=== PATIENT | male | born 1980 | race Asian ===

== ENCOUNTER 2017-10-31 21:11 | Emergency (ER) | payer MEDICAID, OTHER ==
[~2017-10-31] VITALS: Ht 172.7 cm; Wt 124.3 kg
[2017-10-31 21:14] VITALS: Ht 172.7 cm; Wt 124.3 kg
--- NOTE | 2017-10-31 23:16 | ERD ---
ER Documentation Chief Complaint Chief Complaint C/O NECK/BACK/SHOULDER PAIN +COUGH X2 WEEKS HPI This 37 YO male pt reports sharp shooting left sided neck pain and stiffness, pt reports that he had a appointment with a Neurologist, but the referral before appointment and PMD office did not change the date . symptoms are chronic in legs reports 3-4 " flare up in arm in the las 5 yrs. ROS All systems reviewed and are negative except as per history of present illness. Medications Home Meds No Active Prescriptions or Reported Meds Allergies Allergies: Coded Allergies: No Known Allergy (Unverified , 04/17/14) PMhx/Soc Hx Miscellaneous Medical Probl: No (chronic pains) Hx Alcohol Use: Yes (socially only) Hx Substance Use: No Hx Tobacco Use: No Smoking Status: Never smoker Physical Exam Vitals Vital Signs Date Time Temp Pulse Resp B/P Pulse Ox O2 Delivery O2 Flow Rate FiO2 10/31/17 21:14 97.8 100 22 134/89 97 Vitals stable, triage notes reviewed Physical Exam Const: Obese, pleasant, well-nourished well-appearing 37-year-old male patient obvious discomfort no acute distress Head: Atraumatic Eyes: Normal Conjunctiva Neck: No cervical point tenderness, palpable paraspinal tenderness stiff posturing, limited range of motion with rotation and lateral bending, pain with flexion and extension. Back Exam: Skin: No bruising or rash Compartments: Soft Motor: Left parascapular palpable spasm, Sensation: Intact to light touch throughout Bones: No midline TTP Ext: No cyanosis, or edema Neur: Awake and alert Psych: Normal Mood and Affect Results 24 hrs Current Medications Medications (Trade) Dose Ordered Sig/Varghese Route PRN Reason Start Time Stop Time Status Last Admin Dose Admin Prednisone (Prednisone) 60 mg ONCE ONCE PO 11/01/17 00:00 11/01/17 00:01 DC 10/31/17 23:41 Ketorolac Tromethamine (Toradol) 15 mg ONCE STAT IM 10/31/17 23:31 10/31/17 23:33 DC 10/31/17 23:42 Acetaminophen (Tylenol Tab) 650 mg ONCE ONCE PO 11/01/17 00:00 11/01/17 00:01 DC 10/31/17 23:42 Procedures/MDM Nexus criteria assessment: MLTTP: None Intoxication: None Distracting Injury: None Focal Neurodeficit: None AMS: None Patient does not meet criteria for cervical imaging. This pleasant 37-year-old male patient presents to emergency department for evaluation of neck pain. Patient reports "nerve pain", patient describes this nerve pain as sharp stabbing pain that goes like a electric shock through him when he moves in certain positions. 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 Patient reports he has a appointment yesterday with neurologist but primary care physician did not medication that will alter his level of consciousness, patient denies injury or known causative factor. Denies history of bone disease. Emergency room course includes history and physical exam, exam findings support a straight posture and movement with limited range of motion suggestive of spinal straightening, spasm. Plan to treat with 60 mg of p.o. prednisone, 15 mg of intramuscular Toradol, 650 mg of Tylenol. Patient reassessed after 40 minutes with some improvement of symptoms, patient will be discharged home with titrating prednisone dose, Naprosyn 500 mg 1 tab p.o. twice daily 10 days and Zantac 150 mg 1 tab p.o. twice daily 10 days. Patient instructed to call primary care physician's office tomorrow and requests to speak to custody officer explain what has just happened so that he may get a appointment to see neurologist. Increase fluids, increase rest, patient instructed to use ice, gentle range of motion, return to emergency department if symptoms fail to improve as anticipated, return follow-up with primary physician. Patient is stable with no new complaints during ER course, clinically there is no current evidence to suggest bacterial meningitis, viral meningitis, torticollis, cervical fracture, spinal abscess, spinal mass,or any other emergent condition appearing to require further evaluation or hospitalization. I feel the patient is stable for discharge at this time. I have discussed results, examination findings, the treatment plan with the patient and family present prior to discharge. Indications for emergent reevaluation, side effects of medication were also discussed. All questions were answered. Patient verbalizes understanding and agrees with plan of care. Departure Diagnosis: Primary Impression: Neck pain Condition: Fair Patient Instructions: Neck Pain, No Trauma Additional Instructions: Thank you for for coming to [facility] for your care today. Please ask your nurse or provider if you have questions about your care today and do not leave until all your questions have been answered. Please use any medications given as directed and follow-up with your doctor (or the doctor you were referred to) in the next 2-3 days. If you do not have a primary care doctor you may follow up at the [facility] (listed below). You may also use motrin and tylenol as needed for fever and/or pain unless instructed otherwise by your provider or nurse. Indications for more urgent follow-up have been discussed, but you may return to the Emergency Department at ANY time for any worrisome or worsening symptoms. If you have abdominal pain, please know that no test or exam you received is perfect and you should follow up within 8 hours for continued pain. If you had any imaging studies today, such as an X-Ray or CT Scan, these studies will be reviewed later by a radiologist. You will be called if there are important findings that were not identified today, so make sure the contact information you provided at registration is correct. If you received any narcotic pain control medicine today, such as Vicodin, Morphine or Dilaudid, your coordination and judgment may be affected for a number of hours. Please do not drive or operate heavy machinery, and you may want someone to assist you at home. If you were given a prescription for narcotic medication, be aware that it is very addictive- use sparingly and only if necessary. SANDRA FERNANDEZ Oct 31, 2017 23:16
[2017-10-31] MEDS ORDERED: KETOROLAC 15 MG INJ IM STA (23:31)
[2017-11-01] MEDS ORDERED: predniSONE 20 MG TAB PO ONE
[2017-11-01] MEDS ORDERED: ACETAMINOPHEN 325 MG TAB PO ONE
[2017-11-01] MEDS ORDERED: PRED20TA PO ×2 (00:21→00:30)
[2017-11-01] MEDS ORDERED: NAPR-260 PO (00:22)
[2017-11-01] MEDS ORDERED: RANI150T9 PO (00:22)
== END 2017-11-01 00:37 | disposition home or self-care (01) ==
LOC: FTE 21:11
DX: M54.2 Cervicalgia (principal); G89.29 Other chronic pain; M79.2 Neuralgia and neuritis, unspecified; M62.838 Other muscle spasm
CPT/HCPCS: 96372; J1885; J7512; Z7502; Z7610